=== PATIENT | female | born 1995 | race Caucasian/White ===

== ENCOUNTER 2019-06-26 14:06 | Emergency (ER) | payer OTHER, SELFPAY ==
[2019-06-26 14:10] VITALS: BP 166/101; PULSE 118; RESP 24; O2SAT 99
[2019-06-26 14:24] LABS: Add Manual Diff / Slide Review NO; Basophils Absolute Auto 0 /uL (0-100); Basophils Percent Auto 0.4 % (0-2); Eosinophils Absolute Auto 100 /uL (0-450); Eosinophils Percent Auto 0.9 % (2-4); Hematocrit 45.3 % (36-46); Hemoglobin 15.3 g/dL (12.0-16.0); Lymphocytes Absolute Auto 1600 /uL (1100-4500); Mean Corpuscular HGB Conc 33.8 % (30-36); Mean Corpuscular Hemoglobin 29.4 PG (26-34); Mean Corpuscular Volume 86.8 fL (80-100); Monocytes Absolute Auto 900 /uL (0-900); Monocytes Percent Auto 11.1 % (3-14); Neutrophils Absolute Auto 5300 /uL (1500-7000); Neutrophils Percent Auto 67.6 % (50-75); Platelet Count 198 X10^3/uL (150-400); Red Blood Cell Count 5.22 X10^6/uL (4.0-5.2); Red Cell Distribution Width 13.7 % (11.6-14.8); White Blood Cell Count 7.8 X10^3/uL (4.5-11.0)
--- NOTE | 2019-06-26 14:30 | ED.ARRPALP ---
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 Patient denies dyspnea, fever, recent illness, cough, urinary symptoms, nausea/vomiting, fall, heavy vaginal bleeding, or injury. Patient reports right-sided chest feels achy and reports 6 to 7/10 discomfort. Patient stop smoking cannabis 4 days ago after she has been regularly smoking for 4 years after stopped taking citalopram for anxiety. Patient reports decreased appetite for last 2 days after stop smoking cannabis. Related Data Previous Rx's Medication Instructions Recorded lorazepam [Ativan] 0.5 - 1 mg PO BID PRN #7 tab 06/26/19 Review of Systems <ZEINA Ulloa - Last Filed: 06/26/19 18:10> Review of Systems Narrative: General: Denies fever, chills, fatigue, malaise, sweats. HEENT: Denies sinus pain, ear pain, sore throat, difficulty swallowing, dizziness. Respiratory: Denies dyspnea, cough, wheezing, hemoptysis, sputum. Cardiovascular: See HPI Gastrointestinal: Denies nausea, vomiting, abdominal pain, diarrhea, constipation, melena. : Denies dysuria, frequency, incontinence, hematuria, urinary retention. Musculoskeletal: Denies weakness, joint pain or bony pain. Skin: Denies rash, skin lesions, or other. Neurologic: Denies weakness, headache, numbness, change in speech, confusion, seizures, incoordination. Psychiatric: No concerning psychosocial issues. 12-point review of systems is negative except for those stated above. 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 Head: Normal cephalic, atraumatic. No scalp or temporal tenderness, palpable mass or rash. EYES: Pupils are equal, round, and reactive to light and accommodation. Extraocular muscles are intact bilaterally. There is no subconjunctival hemorrhage, exudate and sclera non-icteric. ENT: Bilateral auditory canals and tympanic membranes clear. Hearing grossly intact. Nose without bleeding, purulent discharge or deviation. Facial sinuses nontender to palpate. Mucous membrane moist, no mucosal lesion. Throat without erythema, tonsillar hypertrophy or exudate. Uvula in midline, airway patent. Neck: Trachea in midline. No JVD, non-tender without lymphadenopathy. No masses or thyroid megaly. Supple, non-tender and no meningeal signs. CARDIAC: Normal regular tachy rate without murmurs, gallops, or rubs. No chest wall tenderness. No peripheral edema, cyanosis or pallor. Capillary refill is less than 2 seconds. RESPIRATORY: Lungs are clear to auscultate bilaterally. No cough, wheezes, rales, or rhonchi. No stridor, respiratory distress, increase work of breathing, or accessary muscle used. ABD: Abdomen soft, nontender and non-distended. No guarding or rebound tenderness to palpate. Bowel sounds are normal in all 4 quadrants. There is no palpable masses or organomegaly. EXT: Full painless ROM of all extremities with no loss of sensation, strength, effusion or edema. SKIN: Warm, dry, normal color for patient. No erythema, lesions or rash over visible areas. BACK: Nontender without deformity or crepitance. No flank tenderness. NEUROLOGICAL: Alert and oriented to place, time and person. Sensation and motor function intact bilaterally. No facial droops, dysphasia. PSYCHIATRIC: Good judgement and reason, without hallucinations, abnormal affect or abnormal behaviors during the examination. Initial Vital Signs Initial Vital Signs: Vital Signs Pulse Rate 118 H 06/26/19 14:10 Respiratory Rate 24 06/26/19 14:10 Blood Pressure 166/101 H 06/26/19 14:10 Pulse Oximetry 99 06/26/19 14:10 <Mike Miller DO - Last Filed: 06/26/19 18:22> Initial Vital Signs Initial Vital Signs: Vital Signs Pulse Rate 118 H 06/26/19 14:10 Respiratory Rate 24 06/26/19 14:10 Blood Pressure 166/101 H 06/26/19 14:10 Pulse Oximetry 99 06/26/19 14:10 Scores <ZEINA Ulloa - Last Filed: 06/26/19 18:10> GCS Hitchins coma scale eye opening: Spontaneous [place] coma scale verbal response: Orientated Hitchins coma scale motor response: Obey commands Hitchins coma scale total score: 15 Course <ZEINA Ulloa - Last Filed: 06/26/19 18:10> Orders Ordered: ED Orders 06/26/19 14:13 EKG-12 Lead Stat 06/26/19 14:15 Complete Blood Count AUTO DIFF Stat Comprehensive Metabolic Panel Stat Troponin I Stat 06/26/19 14:29 XR chest 2V Stat 06/26/19 15:00 Urine Microscopic Stat Discontinued Medications Sodium Chloride (Normal Saline 0.9%) 1,000 mls @ 1,000 mls/hr IV BOLUS ONE Stop: 06/26/19 15:28 Last Infusion: 06/26/19 16:09 Dose: 0 mls/hr Documented by: Admin: 06/26/19 14:40 Dose: 1,000 mls/hr Documented by: CLIF Lorazepam (Ativan) 1 mg IV NOW ONE Stop: 06/26/19 14:30 Last Admin: 06/26/19 14:39 Dose: 1 mg Documented by: CLIF Potassium Chloride (Klor-Con M20) 40 meq PO NOW ONE Stop: 06/26/19 15:22 Last Admin: 06/26/19 15:28 Dose: 40 meq Documented by: CLIF Vital Signs Vital signs: Vital Signs - 8 hr 06/26/19 14:10 06/26/19 15:00 06/26/19 15:30 Pulse Rate 118 H 98 H 98 H Respiratory Rate 24 19 18 Blood Pressure 166/101 H Blood Pressure [Left Arm] 146/70 H 142/82 H Pulse Oximetry 99 100 100 06/26/19 16:16 Pulse Rate 92 H Respiratory Rate 18 Blood Pressure 128/72 Blood Pressure [Left Arm] Pulse Oximetry 100 <Mike Miller DO - Last Filed: 06/26/19 18:22> Orders Ordered: ED Orders 06/26/19 14:13 EKG-12 Lead Stat 06/26/19 14:15 Complete Blood Count AUTO DIFF Stat Comprehensive Metabolic Panel Stat Troponin I Stat 06/26/19 14:29 XR chest 2V Stat 06/26/19 15:00 Urine Microscopic Stat Discontinued Medications Sodium Chloride (Normal Saline 0.9%) 1,000 mls @ 1,000 mls/hr IV BOLUS ONE Stop: 06/26/19 15:28 Last Infusion: 06/26/19 16:09 Dose: 0 mls/hr Documented by: Admin: 06/26/19 14:40 Dose: 1,000 mls/hr Documented by: CLIF Lorazepam (Ativan) 1 mg IV NOW ONE Stop: 06/26/19 14:30 Last Admin: 06/26/19 14:39 Dose: 1 mg Documented by: CLIF Potassium Chloride (Klor-Con M20) 40 meq PO NOW ONE Stop: 06/26/19 15:22 Last Admin: 06/26/19 15:28 Dose: 40 meq Documented by: CLIF Vital Signs Vital signs: Vital Signs - 8 hr 06/26/19 14:10 06/26/19 15:00 06/26/19 15:30 Pulse Rate 118 H 98 H 98 H Respiratory Rate 24 19 18 Blood Pressure 166/101 H Blood Pressure [Left Arm] 146/70 H 142/82 H Pulse Oximetry 99 100 100 06/26/19 16:16 Pulse Rate 92 H Respiratory Rate 18 Blood Pressure 128/72 Blood Pressure [Left Arm] Pulse Oximetry 100 MDM - Arrhythmia/Palpitations <ZEINA Ulloa - Last Filed: 06/26/19 18:10> Differential Diagnosis Differential diagnosis: Likely palpitations, anxiety, sinus tachycardia, supraventricular tachycardia and other (Dehydration) Medical Records Attestation: I reviewed the patient's medical records. Lab Data Result diagrams: 06/26/19 14:15 06/26/19 14:15 Labs: Lab Results 06/26/19 06/26/19 06/26/19 Range/Units 14:15 14:15 15:00 WBC 7.8 (4.5-11.0) X10^3/uL RBC 5.22 H (4.0-5.2) X10^6/uL Hgb 15.3 (12.0-16.0) g/dL Hct 45.3 (36-46) % MCV 86.8 (80-100) fL MCH 29.4 (26-34) PG MCHC 33.8 (30-36) % RDW 13.7 (11.6-14.8) % Plt Count 198 (150-400) X10^3/uL Neut % (Auto) 67.6 (50-75) % Lymph % (Auto) 20.0 L (25-40) % [place] % (Auto) 11.1 (3-14) % Eos % (Auto) 0.9 L (2-4) % Baso % (Auto) 0.4 (0-2) % Neut # (Auto) 5300 (4966-2456) /uL Lymph # (Auto) 1600 (5613-1828) /uL [place] # (Auto) 900 (0-900) /uL Eos # (Auto) 100 (0-450) /uL Baso # (Auto) 0 (0-100) /uL Sodium 137 (137-145) mmol/L Potassium 3.0 L (3.4-5.1) mmol/L Chloride 100 (98-107) mmol/L Carbon Dioxide 20 L (22-32) mmol/L BUN 14 (7-17) mg/dL Creatinine 0.90 (0.52-1.04) mg/dL Estimated GFR > 60.0 (>60) mL/min BUN/Creatinine Ratio 15.6 (6-22) Glucose 87 (70-100) mg/dL Calcium 9.5 (8.4-10.2) mg/dL Total Bilirubin 1.1 (0.2-1.3) mg/dL AST 37 H (14-36) IU/L ALT 21 (<35) IU/L Alkaline Phosphatase 72 (38-126) U/L Troponin I < 0.012 (0.01-0.034) ng/mL Total Protein 7.9 (6.3-8.2) g/dL Albumin 5.0 (3.5-5.0) g/dL Globulin 2.9 (1.7-4.1) g/dL Albumin/Globulin Ratio 1.7 (1.0-2.8) Urine RBC None seen (0-5/HPF) Urine WBC 0-1/hpf (0-5/HPF) Ur Squamous Epith Cells 0-1 /hpf (0-5/HPF) Urine Bacteria None seen (None) Hyaline Casts 1-5/lpf (None) Ur Culture Indicated? Cult not indicated Point of Care Testing Test Results Negative Urine Dip Bedside Urine Glucose Negative Bedside Urine Bilirubin - Negative Bedside Urine Ketone ++ 40 Urine Specific [place]wer 1.015 Bedside Urine Occult Blood - Negative Bedside Urine pH 6.0 Bedside Urine Protein +/- 15 Bedside Urine Urobilinogen - Negative Bedside Urine Nitrite - Negative Bedside Urine Leukocytes - Negative Esterase Imaging Data Chest x-ray: Radiologist's Impresson: [address] [address] XRay Report Signed Patient: Henny Baird NMR#: [id number] : 1995Acct:[id number] Age/Sex: 23 / FDate of Service: 06/26/19 Loc: ED Accession Number: [id number] Procedure: XR chest 2V Ordering Provider: Renan Sapp PROCEDURE: XR CHEST 2V INDICATIONS: palpitation, elevated bp, right chest pain TECHNIQUE: 2 views of the chest were acquired. COMPARISON: [facility], CR, CHEST 2VW, 11/10/2012, 17:23. [facility], , CHEST 2VW, 07/25/2012, 19:26. FINDINGS: Surgical changes and devices: None. Lungs and pleura: Lungs are clear. No pleural effusions or pneumothorax. Mediastinum: Mediastinal contours are normal. Heart size is normal. Bones and chest wall: No suspicious bony abnormalities. Soft tissues appear unremarkable. IMPRESSION: Stable chest. No acute cardiopulmonary process is evident. Dictated by: Alexx Lyles M.D. on 06/26/2019 at 13:53 Approved by: Aelxx Lyles M.D. on 06/26/2019 at 13:54 ECG Data Attestation: I personally reviewed and interpreted this ECG as follows: Prior ECG tracings: not available for review Interpretation: ST rate at 115 P are interval 124, QRS duration 90, QT/QTC 354/422. Normal [place]. No ST elevation MDM Narrative Medical decision making narrative: Patient has history of anxiety and she used to take citalopram up until 4 years ago and she stop this medication and had been smoking cannabis which stopped 4 days ago. Today she noticed chills and feeling hot and noticed elevated blood pressure, tachycardia, anxiety symptoms before coming in to ED and at work (dental office). EKG was sinus tachycardia without ST elevation. Cardiac enzyme was negative. Potassium was mildly decreased to 3.0 and this was replaced with oral potassium of 40 mEq. Carbon dioxide 20 which is likely from hyper ventilation. Patient's right-sided chest discomfort is likely from anxiety symptoms. No acute findings per chest x-ray. Patient felt improved with some IV hydration and IV Ativan 1 mg. patient is interested in getting back on a citalopram and patient advised to talk to PCP who can follow up closely once medication has started. Patient discharged to home with a few tabs of Ativan for recurring acute anxiety Symptoms. Return precautions were discussed with the patient and patient verbalized understanding and agrees with the treatment plan. <Mike Miller, DO - Last Filed: 06/26/19 18:22> Lab Data Labs: Lab Results 06/26/19 06/26/19 06/26/19 Range/Units 14:15 14:15 15:00 WBC 7.8 (4.5-11.0) X10^3/uL RBC 5.22 H (4.0-5.2) X10^6/uL Hgb 15.3 (12.0-16.0) g/dL Hct 45.3 (36-46) % MCV 86.8 (80-100) fL MCH 29.4 (26-34) PG MCHC 33.8 (30-36) % RDW 13.7 (11.6-14.8) % Plt Count 198 (150-400) X10^3/uL Neut % (Auto) 67.6 (50-75) % Lymph % (Auto) 20.0 L (25-40) % [place] % (Auto) 11.1 (3-14) % Eos % (Auto) 0.9 L (2-4) % Baso % (Auto) 0.4 (0-2) % Neut # (Auto) 5300 (9314-0692) /uL Lymph # (Auto) 1600 (8240-0292) /uL [place] # (Auto) 900 (0-900) /uL Eos # (Auto) 100 (0-450) /uL Baso # (Auto) 0 (0-100) /uL Sodium 137 (137-145) mmol/L Potassium 3.0 L (3.4-5.1) mmol/L Chloride 100 (98-107) mmol/L Carbon Dioxide 20 L (22-32) mmol/L BUN 14 (7-17) mg/dL Creatinine 0.90 (0.52-1.04) mg/dL Estimated GFR > 60.0 (>60) mL/min BUN/Creatinine Ratio 15.6 (6-22) Glucose 87 (70-100) mg/dL Calcium 9.5 (8.4-10.2) mg/dL Total Bilirubin 1.1 (0.2-1.3) mg/dL AST 37 H (14-36) IU/L ALT 21 (<35) IU/L Alkaline Phosphatase 72 (38-126) U/L Troponin I < 0.012 (0.01-0.034) ng/mL Total Protein 7.9 (6.3-8.2) g/dL Albumin 5.0 (3.5-5.0) g/dL Globulin 2.9 (1.7-4.1) g/dL Albumin/Globulin Ratio 1.7 (1.0-2.8) Urine RBC None seen (0-5/HPF) Urine WBC 0-1/hpf (0-5/HPF) Ur Squamous Epith Cells 0-1 /hpf (0-5/HPF) Urine Bacteria None seen (None) Hyaline Casts 1-5/lpf (None) Ur Culture Indicated? Cult not indicated Point of Care Testing Test Results Negative Urine Dip Bedside Urine Glucose Negative Bedside Urine Bilirubin - Negative Bedside Urine Ketone ++ 40 Urine Specific [place] 1.015 Bedside Urine Occult Blood - Negative Bedside Urine pH 6.0 Bedside Urine Protein +/- 15 Bedside Urine Urobilinogen - Negative Bedside Urine Nitrite - Negative Bedside Urine Leukocytes - Negative Esterase Discharge Plan Departure Patient Disposition: Home Clinical Impression: Atypical chest pain, Anxiety, Hypokalemia Discharge Date/Time: 06/26/19 16:17 Instructions: DI for Atypical Chest Pain, DI for Anxiety -- Adult, DI for Hypokalemia Activity Restrictions/Additional Instructions: You have been diagnosed with [atypical chest pain likely from anxiety and hypokalemia. Your EKG showed sinus tachycardia but no EKG changes such as heart attack. Chest x-ray does not show acute findings. Cardiac enzyme troponin was negative today. Your potassium was slightly low as 3.0 today and has been replaced with 40 mEq of potassium chloride orally. Your heart rate has improved to 98 with normal blood pressure.] What to do: *Take your medications as directed. Please take Ativan only as needed with anxiety symptoms. This medication can cause drowsiness so please do not take alcohol, drive, or operate heavy equipments. Please eat potassium rich food and drink water mixed with sports drink for next few days to replace potassium. *Follow up with your primary care provider in 2-3 days, call for an appointment. Please discussed restarting citalopram with her provider and recheck chemistry for low potassium. Let them know you were seen in the ED and that we asked you to be seen in follow up. *Return to ED if you have any new, worsening, or concerning symptoms, such as [chest pain, breathing, difficulty dizziness, unable to tolerate fluids, fever, or any acute concerns]. Prescriptions: New lorazepam [Ativan] 0.5 mg tablet 0.5 - 1 mg PO BID PRN (Reason: anxiety) Qty: 7 RF: 0 <Mike Miller, DO - Last Filed: 06/26/19 18:22> Sign Out Provider Sign Out Attestation: Dr Miller Co-Sign Statement: I was available for consultation during this patient's emergency department visit. This chart is signed by myself for administrative purposes only. I did not have direct contact with this patient during this visit. They were seen independently by the APC.
[2019-06-26] MEDS: LORazepam 2 MG/ML INJ 1 MG IV (14:39)
[2019-06-26] MEDS: SODIUM CHLORIDE 0.9% 1,000 ML 1000 ML IV (14:40)
[2019-06-26 14:55] LABS: Alanine Aminotransferase 21 IU/L (<35); Albumin Globulin Ratio 1.7 (1.0-2.8); Alkaline Phosphatase 72 U/L (38-126); Aspartate Aminotransferase 37 IU/L (14-36); BUN Creatinine Ratio 15.6 (6-22); Bilirubin Total 1.1 mg/dL (0.2-1.3); Blood Urea Nitrogen 14 mg/dL (7-17); Calcium 9.5 mg/dL (8.4-10.2); Carbon Dioxide 20 mmol/L (22-32); Chloride 100 mmol/L (98-107); Estimated Glomerular Filt Rate > 60.0 mL/min (>60); Globulin 2.9 g/dL (1.7-4.1); Glucose 87 mg/dL (70-100); HEMOLYSIS < 15 (0-50); Sodium 137 mmol/L (137-145); Total Protein 7.9 g/dL (6.3-8.2)
[2019-06-26 15:00] VITALS: BP 146/70; PULSE 98; RESP 19; O2SAT 100
[2019-06-26 15:06] LABS: Troponin I < 0.012 ng/mL (0.01-0.034)
[2019-06-26] MEDS: POTASSIUM CHLORIDE 20 MEQ TAB 40 MEQ PO (15:28)
[2019-06-26 15:30] VITALS: BP 142/82; PULSE 98; RESP 18; O2SAT 100
[2019-06-26 16:16] VITALS: BP 128/72; PULSE 92; RESP 18; O2SAT 100
[2019-06-26 16:23] LABS: Bacteria Urine None Seen; RBC Urine None Seen (0-5/HPF)
[2019-06-26 16:41] LABS: Culture Indicated Urine Cult Not Indicated; Hyaline Casts Urine 1-5/LPF; Squamous Epithelial Cell Urine 0-1 /HPF (0-5/HPF); WBC Urine 0-1/HPF (0-5/HPF)
== END 2019-06-26 16:17 | disposition home or self-care (01) ==
PROVIDERS: Emergency Provider Nurse Practitioner Family
DX: R07.89 Other chest pain (principal); F41.9 Anxiety disorder, unspecified; E87.6 Hypokalemia; I10 Essential (primary) hypertension; R00.0 Tachycardia, unspecified
CPT/HCPCS: 36415; 71046; 80053; 81003; 81015; 81025; 84484; 85025; 93005; 96361; 96374; 99284; 99285; J2060

== ENCOUNTER 2025-02-09 11:55 | Emergency (ER) | payer OTHER, SELFPAY ==
[2025-02-09 12:08] VITALS: BP 142/81; PULSE 85; RESP 16; TEMP 36.9; O2SAT 97; BMI 23.6
--- NOTE | 2025-02-09 14:37 | ED.SKABFB ---
HPI - Skin/Abscess/Foreign Bdy <Aminah Virk PA-C - Last Filed: 02/09/25 18:27> General Chief complaint: Skin/Abscess/Foreign Body Stated complaint: Cyst on left bikini line Time Seen by Provider: 02/09/25 12:17 History of Present Illness HPI narrative: Ms. Gastelum is a pleasant 29-year-old female with a past medical history of pilonidal cysts, anxiety, HSV who presents to the emergency department for ?cyst on left bikini line? x 3 days. Patient states over the last year she is dealt with a recurring cyst/abscess in her perineum. She saw her PCP 2 weeks ago who advised her to follow up with OBGYN however she was unable to make an appointment for 3 months. Over the last 3 days this area has gotten much more inflamed, painful and large. In the past, she was able to drain this herself at home and a lot of green drainage came out of it. She denies fevers, chills, abdominal pain, dysuria, concern for . She is hoping to have this area drained. She does have a history of MRSA. Related Data Previous Rx's ?Medication ?Instructions ?Recorded doxycycline hyclate 100 mg capsule 100 mg PO BID 7 days #14 caps 02/09/25 Allergies Allergy/AdvReac Type Severity Reaction Status Date / Time No Known Drug Allergies Allergy Unverified 07/02/24 12:19 Review of Systems <Aminah Virk PA-C - Last Filed: 02/09/25 18:27> Review of Systems ROS Unobtainable: All systems reviewed & are unremarkable except as noted in HPI and below Patient History <Aminah Virk PA-C - Last Filed: 02/09/25 18:27> Medical History Anxiety HSV-2 (herpes simplex virus 2) infection Exam <Aminah Virk PA-C - Last Filed: 02/09/25 18:27> Narrative Exam Narrative: GENERAL: 29 year old patient appears stated age. Well-developed patient, in no acute distress. HEAD: Atraumatic. Normocephalic. EYES: No scleral icterus. No injection or drainage. NECK: Trachea midline. Cervical ROM intact. CARDIOVASCULAR: Regular rate and rhythm. RESPIRATORY: ?Nonlabored respirations. ?Speaking in clear, full sentences. GASTROINTESTINAL: Abdomen soft, non-tender, nondistended. : Patient gave verbal consent for pelvic exam. Female nurse product promoter sales person present for exam. Patient has a 2 cm round palpable cyst-like structure to the left of for labia majora/perineum. There is very minimal erythema overlying this. It is tender. There was no swelling or extension onto the labia or within the vaginal introitus. EXTREMITIES: No LE edema. BACK: Nontender without deformity or crepitance. No flank tenderness. NEURO: AOx3. ?Clear speech. ?Moves all 4 extremities appropriately. SKIN: No rash or erythema of visible areas. No erythema or increased warmth of the vaginal region. Initial Vital Signs Initial Vital Signs: Vital Signs Temperature 98.4 F 02/09/25 12:08 Pulse Rate 85 02/09/25 12:08 Respiratory Rate 16 02/09/25 12:08 Blood Pressure 142/81 H 02/09/25 12:08 Pulse Oximetry 97 02/09/25 12:08 Oxygen Delivery Method Room Air 02/09/25 12:08 <Mary Quan MD - Last Filed: 02/09/25 23:30> Initial Vital Signs Initial Vital Signs: Vital Signs Temperature 98.4 F 02/09/25 12:08 Pulse Rate 85 02/09/25 12:08 Respiratory Rate 16 02/09/25 12:08 Blood Pressure 142/81 H 02/09/25 12:08 Pulse Oximetry 97 02/09/25 12:08 Oxygen Delivery Method Room Air 02/09/25 12:08 Procedures <Aminah Virk PA-C - Last Filed: 02/09/25 18:27> Abscess I/D I&D #1: Site: lower extremity (left groin) Side (if applicable): left Local Anesthetic: lidocaine 1% and with epi Amount of anesthesia used (mL): 4 Technique: incised with #11 blade Amount of fluid expressed (mL): 1 Irrigation: No Packing used?: none Course <Aminah Virk PA-C - Last Filed: 02/09/25 18:27> Orders Ordered: Discontinued Medications Bacitracin (Bacitracin Oint 0.9 Gm Pckt) 1 applic TOP NOW ONE Stop: 02/09/25 16:38 Last Admin: 02/09/25 16:49 Dose: 1 applic Documented By: DUY Doxycycline Hyclate (Doxycycline Hyclate 100 Mg Tablet) 100 mg PO NOW ONE Stop: 02/09/25 16:38 Last Admin: 02/09/25 16:48 Dose: 100 mg Documented By: DUY Lidocaine/Epinephrine (Lidocaine 1% W/Epi 10ml) 5 ml SUBCUT NOW ONE Stop: 02/09/25 15:30 Last Admin: 02/09/25 15:36 Dose: 5 ml Documented By: DUY Oxycodone/Acetaminophen (Oxycodone/Acetaminophen 5/325 Tablet) 1 tab PO NOW ONE Stop: 02/09/25 15:30 Last Admin: 02/09/25 15:36 Dose: 1 tab Documented By: DUY Vital Signs Vital signs: Vital Signs - 8 hr 02/09/25 17:38 Temperature 98.0 F Pulse Rate 79 Respiratory Rate 16 Blood Pressure 141/92 H Pulse Oximetry 100 Oxygen Delivery Method Room Air <Mary Quan MD - Last Filed: 02/09/25 23:30> Orders Ordered: Discontinued Medications Bacitracin (Bacitracin Oint 0.9 Gm Pckt) 1 applic TOP NOW ONE Stop: 02/09/25 16:38 Last Admin: 02/09/25 16:49 Dose: 1 applic Documented By: DUY Doxycycline Hyclate (Doxycycline Hyclate 100 Mg Tablet) 100 mg PO NOW ONE Stop: 02/09/25 16:38 Last Admin: 02/09/25 16:48 Dose: 100 mg Documented By: DUY Lidocaine/Epinephrine (Lidocaine 1% W/Epi 10ml) 5 ml SUBCUT NOW ONE Stop: 02/09/25 15:30 Last Admin: 02/09/25 15:36 Dose: 5 ml Documented By: DUY Oxycodone/Acetaminophen (Oxycodone/Acetaminophen 5/325 Tablet) 1 tab PO NOW ONE Stop: 02/09/25 15:30 Last Admin: 02/09/25 15:36 Dose: 1 tab Documented By: DUY Vital Signs Vital signs: Vital Signs - 8 hr 02/09/25 17:38 Temperature 98.0 F Pulse Rate 79 Respiratory Rate 16 Blood Pressure 141/92 H Pulse Oximetry 100 Oxygen Delivery Method Room Air MDM - Skin/Abscess/Foreign Bdy <Aminah Virk PA-C - Last Filed: 02/09/25 18:27> Medical Records Attestation: I reviewed the patient's medical records. [facility] [place] Narrative Medical decision making narrative: 29-year-old female with a past medical history of pilonidal cysts, anxiety, HSV who presents to the emergency department for ?cyst on left bikini line? x 3 days. Differential diagnosis includes but is not limited to cyst, abscess, Bartholin's cyst, lipoma, etc. On exam patient is in no acute distress, nontoxic-appearing, all vital signs within normal limits. External pelvic exam reveals a small, 1-2 cm round well demarcated cyst-like structure to the left of the perineum that is tender with very minimal erythema. The skin is not cellulitic. This is not a Bartholin cyst, it is more on the inner thigh that it is the vulvar region. Patient is adamant that she wants this drained and does not want to trial warm compresses and antibiotics. After shared decision-making, we will treat with oxycodone for pain, anesthetized with lidocaine, and perform I&D. She does have history of MRSA so we will place on doxycycline while wound culture is pending. Incision and drainage was performed of left groin cyst/abscess, very very minimal amount of drainage resulted, therefore no wound culture was obtained no packing was placed. Patient tolerated the procedure well. Bacitracin and a gauze dressing was applied, recommended completion of full course of doxycycline, Sitz baths/warm compresses, wound care, follow up with General surgery or OBGYN for full removal of cyst-like structure. Discussed strict ER return precautions. Patient verbalized understanding of all information and is happy with the plan. Provided with [facility] contact info. She is ambulatory and stable for discharge home, her is here to drive her home. Discharge Plan Departure Patient Disposition: Home Clinical Impression: Cutaneous abscess Qualifiers: Site of cutaneous abscess: extremity Site of cutaneous abscess of extremity: lower extremity Laterality: left Qualified Code(s): L02.416 - Cutaneous abscess of left lower limb Instructions: DI for Skin Abscess Activity Restrictions/Additional Instructions: Dear Ms. Gastelum, Thank you for coming to the emergency department. Today you were evaluated for a painful cyst in your left groin. We performed incision and drainage however there was not much fluid that came out of this area. I would like you to complete the full 7 day course of antibiotics to treat any infection of this area. Please follow up with the OBGYN or a general surgeon for complete removal of this area. Please use Sitz baths and warm compresses to help with drainage. Please keep the area clean and covered with a dressing at all times. Please take Ibuprofen (Motrin/Advil) or Acetaminophen (Tylenol) for pain. These are available over the counter. You may take Ibuprofen 600 mg every 8 hours with food for pain. You may also take Acetaminophen 650 mg every 4-6 hours for pain. Do not exceed 3000 mg of Tylenol a day as this can cause liver damage. Do not drink alcohol with either of these medications. Return to the ER immediately if you develop any new or worsening symptoms, severe pain, fevers or other concerns. Please follow up with your primary care doctor within the next 2-3 days for ER follow-up. (If you do not have a PCP you can call [phone]. ?to schedule an appointment with an [facility] Primary Care Provider) IF YOU DEVELOP ANY NEW OR WORSENING SYMPTOMS, RETURN TO THE ER! Please read the attached instructions, they highlight more specific treatments and interventions for you at home. Thank you for letting me participate in your care, Aminah Virk PA-C Prescriptions: New doxycycline hyclate 100 mg capsule 100 mg PO BID 7 Days Qty: 14 0RF Referrals: [facility] [Provider Group] Stand Alone Forms: Patient Portal/API ED Sign-out <Mary Quan MD - Last Filed: 02/09/25 23:30> [facility] Attestation: I was immediately available in the department for consultation throughout this patient's visit. Mary Quan MD
[2025-02-09] MEDS: LIDOCAINE 1% W/EPI 10ML 5 ML SUBCUT (15:36)
[2025-02-09] MEDS: DOXYCYCLINE HYCLATE 100 MG TABLET PO (16:48)
[2025-02-09] MEDS: BACITRACIN OINT 0.9 GM PCKT 1 APPLIC TOP (16:49)
[2025-02-09 17:38] VITALS: BP 141/92; PULSE 79; RESP 16; TEMP 36.7; O2SAT 100
== END 2025-02-09 17:38 | disposition home or self-care (01) ==
PROVIDERS: Emergency Provider Physician Assistant
DX: L02.416 Cutaneous abscess of left lower limb (principal)
CPT/HCPCS: 99283